=== PATIENT | female | born 1990 | race Caucasian/White ===

== ENCOUNTER 2016-10-04 04:23 | Emergency (ER) | payer SELFPAY ==
--- NOTE | 2016-10-04 19:07 | ER ---
ADMIT: 10/04/2016 RM/LOC: ER [facility] MR#: [id number] [facility] [address] [place] [id number] KRISTINA CARLSON , Emergency Room Report SEX: F AGE: 26 : 1990 DATE: 10/04/2016 HISTORY OF PRESENT ILLNESS: The patient is a 26-year-old female with no specific past medical history, came to the ER with chief complaint of right lateral chest pain and right breast pain. The patient states the pain started 2 hours before coming to the hospital and the pain is moderate in severity and sharp. The patient denies similar pain in the past and denies any trauma. The patient states that the pain is mildly increased with deep inspiration and also increases with palpation of the area. PHYSICAL EXAMINATION: GENERAL: The patient was sitting no obvious pain or distress. VITAL SIGNS: Normal vitals, afebrile. HEAD AND NECK: Noncontributory. CHEST: The patient had alcy-gv-nlysidrh tenderness in the right lateral chest. I did not feel any lumps or masses in the right breast when I was doing the exam with hand rigger, the nursing. The patient had no deformity or discharge or erythema and no fluctuation over the right breast. ABDOMEN: Soft. HEART: Normal heart sounds. The rest of the physical exam is noncontributory. Pain is controlled with the Percocet. Chest x-ray did not show any abnormalities or acute changes. PLAN: The patient is stable to be discharged home and was advised to follow up with the primary doctor for follow per their discretion if the pain returns or the patient has more concerns. Octavio Yepez MD/ [facility]ko JOB #: [id number] CC: Octavio Yepez MD, Attending Physician
== END 2016-10-04 06:47 | disposition home or self-care (01) ==
LOC: ER 04:23
DX: R07.89 Other chest pain (principal); N64.4 Mastodynia